=== PATIENT | female | born 1980 | race Caucasian/White ===

== ENCOUNTER 2016-07-29 16:36 | Emergency (ER) | payer MEDICAID ==
[2016-07-29 19:50] LABS: BASOPHILS 0.3 % (0.0-2.0); EOSINOPHILS 2.4 % (0-7); HEMATOCRIT 42.1 % (36.0-48.0); HEMOGLOBIN 13.9 g/dL (12-16); IMMATURE GRANULOCYTES 0.3 % (0-5); LYMPHOCYTES 21.4 % (15-50); MCH 30.8 pg (26.0-34.0); MCV 93.1 fL (80.0-100.0); MEAN PLATELET VOLUME 8.8 fL (7.4-10.4); MONOCYTES 4.7 % (2-11); NEUTROPHILS 70.9 % (40-80); PLATELET COUNT 340 10x3/uL (130-400); RBC 4.52 10x6/uL (4.00-5.40); RDW 12.4 % (11.5-14.5); WBC 11.9 10x3/uL (4.8-10.8)
[2016-07-29 20:07] LABS: ALBUMIN 4.1 g/dL (3.4-5.0); ALKALINE PHOSPHATASE 87 U/L (46-116); ALT (SGPT) 24 U/L (10-68); CALC OSMOLALITY 277 mosm/kg (275-300); CALCIUM 9.8 mg/dL (8.5-10.1); CARBON DIOXIDE 24.6 mmol/L (21.0-32.0); CHLORIDE - SERUM 102 mmol/L (98-107); CREATININE - SERUM 1.1 mg/dL (0.6-1.3); GLUCOSE 92 mg/dL (74-106); POTASSIUM - SERUM 3.5 mmol/L (3.5-5.1); PROTEIN - SERUM 7.3 g/dL (6.4-8.2); SODIUM 140 mmol/L (136-145); UREA NITROGEN 11 mg/dL (7-18); eGFR NON AFRICAN AMERICAN 60 mL/min (90-120)
[2016-07-29 20:09] LABS: TROPONIN-I < 0.017 ng/mL (0.000-0.060)
== END 2016-07-29 20:42 | disposition home or self-care (01) ==
LOC: D.ER 16:36
PROVIDERS: Physician Assistant
DX: J20.9 Acute bronchitis, unspecified (principal); R50.9 Fever, unspecified; R07.81 Pleurodynia; F32.9 Major depressive disorder, single episode, unspecified; F41.9 Anxiety disorder, unspecified; R00.0 Tachycardia, unspecified

== ENCOUNTER 2018-10-12 15:49 | Emergency (ER) | payer MEDICAID ==
[~2018-10-12] VITALS: Ht 157.5 cm; Wt 113.6 kg
[2018-10-12 16:00] VITALS: BP 128/77; Ht 157.5 cm; Wt 113.6 kg
[2018-10-12] MEDS ORDERED: HYDROCODON-ACE1 EAC7 PO (17:13)
== END 2018-10-12 17:50 | disposition home or self-care (01) ==
LOC: D.ER 15:49
DX: T84.293A Other mechanical complication of internal fixation device of bones of foot and toes, initial encounter (principal)

== ENCOUNTER 2018-11-01 08:11 | Day surgery (SDC) | payer MEDICAID ==
[~2018-11-01] VITALS: Ht 157.5 cm; Wt 127.0 kg
[~2018-11-01 08:11] MED LIST: HYDROCODON-ACE1 EAC7 PO
[2018-11-01 08:42] LABS: HEMATOCRIT 43.5 % (36.0-48.0); HEMOGLOBIN 14.8 g/dL (12-16); MCH 31.2 pg (26.0-34.0); MCV 91.6 fL (80.0-100.0); RBC 4.75 10x6/uL (4.00-5.40); RDW 12.8 % (11.5-14.5); WBC 8.4 10x3/uL (4.8-10.8)
[2018-11-01 09:18] VITALS: BP 112/64; Ht 157.5 cm; Wt 127.0 kg
[2018-11-01] MEDS ORDERED: VISTARIL50 MG PO (14:06)
[2018-11-01] MEDS ORDERED: PERCOCET 10-321 EAC1 PO (14:06)
[2018-11-01] MEDS ORDERED: KEFLEX500 MG PO (14:06)
--- NOTE | 2018-11-01 14:56 | NUR ---
RE-BLOCK COMPLETE [id number]
--- NOTE | 2018-11-01 16:00 | OP ---
PATIENT NAME: SUNITA CARPENTER MEDICAL RECORD: [id number] :81 LOCATION:[facility] ADMISSION DATE: SURGEON: JUWAN CHRISTIE DO DATE OF OPERATION: 11/01/2018 PROCEDURE PERFORMED: Left ankle removal of hardware and syndesmotic fixation. PREOPERATIVE DIAGNOSIS: Left ankle syndesmotic disruption and painful hardware. POSTOPERATIVE DIAGNOSIS: Left ankle syndesmotic disruption and painful hardware. INDICATIONS: Ms. Carpenter is a 38-year-old female that presented to my office few months ago. She has been seen by nurse practitioner. She has had an ankle fracture approximately 20 years ago, where it looked like it was a high fibular fracture with a syndesmotic disruption. I had put a long plate on and a syndesmotic screw across, which ended up breaking, unknown when. She continued to have left ankle pain and felt like it gave way. She did have some medial space widening on x-ray and the fibula did look well healed. We informed her of the risk including damage to superficial peroneal nerve with numbness in the foot. Due to the fact where the plate was, we may not be able to get the plate out and that she may have continued pain with this. She was okay with those risks as well as infection, bleeding, damage to other nerves or vessels. She was also aware of risks of blood clots, continued pain, and even ; and she signed the consent. SURGEON: Juwan Christie DO DESCRIPTION OF PROCEDURE: The patient received a block by anesthesia preoperatively, taken to the operative suite, laid in the supine position, and given general anesthetic. She was given 3 grams of Ancef preoperatively. SHE HAS PENICILLIN ALLERGY, but did not have reaction to the Ancef. The left lower extremity was prepped and draped in sterile fashion. Time-out was performed. Everyone was in agreement with correct side, site, patient, and procedure. The left lower extremity was then exsanguinated with an Esmarch and the tourniquet was inflated to 350 mmHg, was up for 41 minutes. The incision began over the old wound. Careful dissection was made down to the plate. The bone of the fibula had grown all the way over the plate and the most distal screws were exposed. The syndesmotic screw that was in in the most distal hole was backing out. We removed this one and 3 others and then tried to go up more proximal, but the bony overgrowth was extremely thick. We did not want to risk fracturing the fibula and getting the plate off. We then stressed the ankle and saw that the medial space widened more than it had as well as the talus subluxing laterally. Noting this, I decided to put a TightRope across with a large clamp, and with the ankle dorsiflexed, I clamped the ankle together on the mortise view. I closed the syndesmosis down and then shot a TightRope from [employer] across stainless steel through the plate from previous plate hole. This was then cinched down and the clamp was removed. The ankle was stressed again. The talus did not sublux laterally at that point, but she did have some medial clear space, which was less than previous without the TightRope. The tourniquet was then let down. At that time, the site was irrigated. The wound was closed with 2-0 Vicryl in an inverted interrupted fashion and then ZipLine was placed on that. There was a small angeles in the skin medially for the large clamp. This was closed as well in regular standard fashion. Adaptic, 4 x 4s, and two ABDs were placed on the ankle, one on the heel and one over the incision. Webril was OPERATIVE REPORT [id number] SUNITA CARPENTER used to secure that in place and then a posterior short leg splint was placed on the patient. A 6-inch Gael was used to secure that. She was awakened and taken to recovery in stable condition. BLOOD LOSS: Approximately 50 mL. COMPLICATIONS: None. TRANSINT:[id number] Voice Confirmation ID: [id number] DOCUMENT ID: [id number] JUWAN CHRISTIE DO at 1600 CC: [id number] DICTATION DATE: 11/01/18 1413 DECISION UNIT RN: 11/01/18 1530 [facility] [address] [id number]
--- NOTE | 2018-11-01 16:08 | NUR ---
PT GIVEN 6.25 OF PHENERGAN IM PER VERBAL ORDER FROM DR CHRISTIE FOR ACTIVE VOMITING.
--- NOTE | 2018-11-01 17:09 | NUR ---
PT RESTING COMFORTABLY AT THIS TIME, STATES THAT SHE WILL ATTEMPT FULL LIQUIDS AT THIS TIME.
--- NOTE | 2018-11-01 17:53 | NUR ---
PT CONTINUES TO COMPLAIN OF NAUSEA, WITH BOUTS OF VOMITING AND DRY HEAVING. DR CHRISTIE PAGED AT THIS TIME.
--- NOTE | 2018-11-01 19:29 | NUR ---
DR CHRISTIE HERE TO SEE PT, AWARE OF NAUSEA AND PAIN AND MEDS GIVEN. PAIN ON INNER PART OF ANKLE. FOOT ELEVATED IN BED ON 2 PILLOWS. GOOD CIRCULATION AND SOME LIGHT FEELING IN TOES
--- NOTE | 2018-11-01 20:35 | NUR ---
1830 RECIEVED REPORT FROM PAMELLA MYERS. PT NAUSEATED AND PAIN TO INNER PART OF LEFT LEG. DRESSING CLEAN DRY AND INTACT. 1844 DISCHARGE INSTRUCTIONS GIVEN. PT VOMITED 200ML OF LIQUID EMESIS. 190 DR CHRISTIE IN ROOM TO SEE PT. ORDERS GIVEN AND NOTED TO GIVE SOME MYLANTA. PT MEDICATED FOR PAIN WITH IV TORDOL WITH GOOD RESULTS. LEFT LEG ELEVATED ON 2 PILLOWS. 1929 IV REMOVED 1999 STEP MOTHER WENT TO GET RX FILLED 2014 PT ASSITED WITH GETTING DRESSED AND UP IN WC. TO CAR IN WC AND ASSITED PT IN BACK SEAT OF CAR WITH LEG ELEVATED. MILD NAUSEA NOTED AFTER GIVING MYLANTA PO.
== END 2018-11-01 20:30 | disposition home or self-care (01) ==
LOC: D.OPS 08:11 → D.PAN 13:45 → D.OPS 20:30
PROVIDERS: Anesthesiology; ATTEND Orthopaedic Surgery
DX: T84.84XA Pain due to internal orthopedic prosthetic devices, implants and grafts, initial encounter (principal); M25.572 Pain in left ankle and joints of left foot; Z88.0 Allergy status to penicillin; S93.432S Sprain of tibiofibular ligament of left ankle, sequela; X58.XXXS Exposure to other specified factors, sequela; Z01.812 Encounter for preprocedural laboratory examination

== ENCOUNTER → 2018-11-14 12:21 | Outpatient (CLI) | payer MEDICAID ==
[2018-11-01 09:18] VITALS: BMI 51.3
[~2018-11-14 12:21] MED LIST changes: +KEFLEX500 MG PO; +PERCOCET 10-321 EAC1 PO; +VISTARIL50 MG PO
== END | disposition home or self-care (01) ==
LOC: D.US 12:21
PROVIDERS: ATTEND Clinical Nurse Specialist Family Health
DX: R22.42 Localized swelling, mass and lump, left lower limb (principal)

== ENCOUNTER 2019-02-08 20:47 | Emergency (ER) | payer MEDICAID ==
[~2019-02-08] VITALS: Ht 157.5 cm; Wt 123.6 kg
[2019-02-08 20:54] VITALS: Ht 157.5 cm; Wt 123.6 kg
[2019-02-08] MEDS ORDERED: MAXALT MLT10 MG/TAB PO (21:46)
[2019-02-08 22:30] VITALS: BP 106/57
== END 2019-02-08 22:30 | disposition home or self-care (01) ==
LOC: D.ER 20:47
DX: G43.909 Migraine, unspecified, not intractable, without status migrainosus (principal)

== ENCOUNTER 2019-09-23 23:05 | Emergency (ER) | payer MEDICAID ==
[~2019-09-23] VITALS: Ht 157.5 cm; Wt 120.9 kg
[~2019-09-23 23:05] MED LIST changes: +MAXALT MLT10 MG/TAB PO
[2019-09-23 23:18] VITALS: Ht 157.5 cm; Wt 120.9 kg
[2019-09-23] MEDS ORDERED: ISOSORBIDE MONO60 M1 PO (23:20)
[2019-09-23] MEDS ORDERED: LASIX40 MG PO (23:20)
[2019-09-23] MEDS ORDERED: VIIBRYD40 MG PO (23:21)
[2019-09-23] MEDS ORDERED: TOPROL XL200 MG PO (23:21)
[2019-09-23] MEDS ORDERED: KLONOPIN1 MG PO (23:21)
[2019-09-23] MEDS ORDERED: MYRBETRIQ25 MG PO (23:22)
[2019-09-23] MEDS ORDERED: XANAX1 MG PO (23:22)
[2019-09-23] MEDS ORDERED: REMERON15 MG PO (23:23)
[2019-09-23 23:49] LABS: BASOPHILS 0.3 % (0-2); EOSINOPHILS 3.7 % (0-7); HEMATOCRIT 44.1 % (36.0-48.0); HEMOGLOBIN 14.2 g/dL (12-16); IMMATURE GRANULOCYTES 0.2 % (0-5); LYMPHOCYTES 33.5 % (15-50); MCH 30.5 pg (26.0-34.0); MCHC 32.2 g/dL (31.0-37.0); MCV 94.8 fL (80.0-100.0); MEAN PLATELET VOLUME 8.8 fL (7.4-10.4); MONOCYTES 6.1 % (2-11); NEUTROPHILS 56.2 % (40-80); RBC 4.65 10x6/uL (4.00-5.40); RDW 13.6 % (11.5-14.5); WBC 9.1 10x3/uL (4.8-10.8)
[2019-09-23 23:52] LABS: PLATELET COUNT 368 10x3/uL (130-400)
[2019-09-23 23:57] LABS: ANION GAP 14.9 mmol/L (8-16); CALCIUM 9.5 mg/dL (8.5-10.1); CARBON DIOXIDE 28.4 mmol/L (21.0-32.0); CREATININE - SERUM 1.2 mg/dL (0.6-1.3); POTASSIUM - SERUM 4.3 mmol/L (3.5-5.1)
[2019-09-24 00:03] LABS: BILIRUBIN - TOTAL 0.67 mg/dL (0.2-1.3); PROTEIN - SERUM 7.9 g/dL (6.4-8.2)
[2019-09-24 00:26] LABS: PRO BNP 45 pg/mL (0-125); TROPONIN-I < 0.017 ng/mL (0.000-0.060)
[2019-09-24 00:49] LABS: BILIRUBIN NEGATIVE (NEGATIVE); GLUCOSE NEGATIVE (NEGATIVE); KETONE NEGATIVE (NEGATIVE); NITRITE NEGATIVE (NEGATIVE); UROBILINOGEN NORMAL (NORMAL); WHITE CELLS - URINE NSEEN /hpf (NEGATIVE)
[2019-09-24 02:10] VITALS: BP 104/60
== END 2019-09-24 02:10 | disposition home or self-care (01) ==
LOC: D.ER 23:05
PROVIDERS: Family Medicine
DX: R04.2 Hemoptysis (principal); R91.1 Solitary pulmonary nodule; R07.9 Chest pain, unspecified; R06.02 Shortness of breath

== ENCOUNTER 2020-04-06 15:58 | Emergency (ER) | payer MEDICAID ==
[~2020-04-06] VITALS: Ht 157.5 cm; Wt 102.1 kg
[~2020-04-06 15:58] MED LIST changes: +ISOSORBIDE MONO60 M1 PO; +KLONOPIN1 MG PO; +LASIX40 MG PO; +MYRBETRIQ25 MG PO; +REMERON15 MG PO; +TOPROL XL200 MG PO; +VIIBRYD40 MG PO; +XANAX1 MG PO
[2020-04-06 16:20] VITALS: BP 110/78; Ht 157.5 cm; Wt 102.1 kg
[2020-04-06] MEDS ORDERED: ERYTHROMYCIN OPT1 GM RIGHT EAR (17:00)
== END 2020-04-06 17:38 | disposition home or self-care (01) ==
LOC: D.ER 15:58
DX: S05.01XA Injury of conjunctiva and corneal abrasion without foreign body, right eye, initial encounter (principal); I11.0 Hypertensive heart disease with heart failure; I50.9 Heart failure, unspecified; K21.9 Gastro-esophageal reflux disease without esophagitis; W22.8XXA Striking against or struck by other objects, initial encounter; Y93.9 Activity, unspecified; Y92.9 Unspecified place or not applicable